=== PATIENT | male | born 1960 ===

== ENCOUNTER 2019-03-10 13:00 | Emergency (ER) | payer OTHER ==
--- NOTE | 2019-03-10 13:30 | ED ---
HPI Chest Pain - HPI Summary HPI Summary: Patient is a 58 y/o M presenting to the ED for a chief complaint of intermittent diffuse chest pain that began the morning of 03/10/19. Patient was administered 325 mg aspirin by EMS. Patient also reports palpitations, shortness of breath, and nausea. He describes the chest pain as tightness that lasted for about 2 minutes before resolving. Patient denies similar chest pain in the past. Patient denies vomiting, calf pain, calf swelling, bilateral LE pain or swelling, or diaphoresis. PMHx is significant for HTN, hepatitis C, back problems, DDD, and herniated discs, but denies blood clots. PSHx is significant for hip, leg, knee, and arm surgery. FMHx is significant for PR. Patient last had a cardiac stress test 20 years ago.He admits to smoking 2 packs of cigarettes a day. Patient also admits marijuana use, but denies alcohol use. He denies using oxygen at home. Allergies noted. Medications reviewed. - History of Current Complaint Chief Complaint: EDChestPainROMI Time Seen by Provider: 03/10/19 13:11 Hx Obtained From: Patient Onset/Duration: Atraumatic, Still Present Timing: Intermittent Initial Severity: Moderate Current Severity: Moderate Pain Intensity: 4 Pain Scale Used: 0-10 Numeric Chest Pain Location: Diffuse Chest Pain Radiates: No Character: Tightness Aggravating Factor(s): Nothing Alleviating Factor(s): Nothing Associated Signs and Symptoms: Positive: Chest Pain, Shortness of Breath, Nausea , Palpitations, Other: - Negative bilateral LE pain. Negative: Calf Pain/ Swelling, Vomiting, Edema - Bilateral LE - Allergy/Home Medications Allergies/Adverse Reactions: Allergies Allergy/AdvReac Type Severity Reaction Status Date / Time celecoxib [From Celebrex] Allergy Unknown Verified 03/10/19 13:19 Reaction Details rofecoxib [From Vioxx] Allergy Unknown Verified 03/10/19 13:19 Reaction Details Home Medications: Home Medications Calcium Carbonate CHEW TAB* [Tums*] 1,000 mg PO BID PRN 03/10/19 [History Confirmed 03/10/19] Naproxen TAB* [Naprosyn 250 mg TAB*] 500 mg PO Q8H PRN 03/10/19 [History Confirmed 03/10/19] amLODIPine TAB* [Norvasc 5 mg TAB*] 5 mg PO DAILY 03/10/19 [History Confirmed ] PMH/Surg Hx/FS Hx/Imm Hx Previously Healthy: Yes Endocrine/Hematology History: Denies: Hx Diabetes Cardiovascular History: Reports: Hx Hypertension Denies: Hx Hypercholesterolemia GI History: Reports: Other GI Disorders - Hep C Musculoskeletal History: Reports: Hx Back Problems, Other Musculoskeletal History - DDD Sensory History: Denies: Hx Legally Blind, Hx Deafness Opthamlomology History: Denies: Hx Legally Blind EENT History: Denies: Hx Deafness Neurological History: Reports: Other Neuro Impairments/Disorders - Herniated disc - Surgical History Surgical History: Yes Surgery Procedure, Year, and Place: Hip, leg, knee, and arm Infectious Disease History: No Infectious Disease History: Denies: Traveled Outside the [place] in Last 30 Days - Family History Known Family History: Positive: Other - PR - Social History Occupation: Unemployed Lives: Alone Alcohol Use: None Hx Substance Use: Yes Substance Use Type: Reports: Marijuana Substance Use Comment - Amount & Last Used: not while incarcerated Hx Tobacco Use: Yes Smoking Status (MU): Light Every Day Tobacco Smoker Type: Cigarettes Review of Systems Negative: Skin Diaphoresis Positive: Palpitations, Chest Pain Positive: Shortness Of Breath Positive: Nausea. Negative: Vomiting Negative: Myalgia - Bilateral LE or calf, Edema - Bilateral LE or calf All Other Systems Reviewed And Are Negative: Yes Physical Exam - Summary Physical Exam Summary: Constitutional: Well-developed, Well-nourished, Alert. (-) Distressed Skin: Warm, Dry HENT: Normocephalic; Atraumatic Eyes: Conjunctiva normal Neck: Musculoskeletal ROM normal neck. (-) JVD, (-) Stridor, (-) Tracheal deviation Cardio: Rhythm regular, rate normal, Heart sounds normal; Intact distal pulses; Radial pulses are 2+ and symmetric. (-) Murmur Pulmonary/Chest wall: Effort normal. (-) Respiratory distress, (-) Wheezes, (-) Rales Abd: Soft, (-) tenderness, (-) Distension, (-) Guarding, (-) Rebound Musculoskeletal: (-) Edema Lymph: (-) Cervical adenopathy Neuro: Alert, Oriented x3 Psych: Mood and affect Normal Triage Information Reviewed: Yes Vital Signs On Initial Exam: Initial Vitals BP 139/83 03/10/19 13:09 Vital Signs Reviewed: Yes Procedures - Sedation Patient Received Moderate/Deep Sedation with Procedure: No Diagnostics - Vital Signs Vital Signs Temp Pulse Resp BP Pulse Ox 03/10/19 13:12 8 03/10/19 13:10 97.9 F 66 12 139/83 97 03/10/19 13:09 139/83 - Laboratory Result Diagrams: 03/10/19 13:35 03/10/19 13:35 Lab Statement: Any lab studies that have been ordered have been reviewed, and results considered in the medical decision making process. - Radiology Chest X-ray Radiology Interpretation Completed By: Radiologist Summary of Radiographic Findings: Chest X-ray IMPRESSION: NO ACTIVE CARDIOPULMONARY DISEASE. Reviewed by Dr. Nickerson. - EKG 13:18 Cardiac Rate: NL - 81 BPM EKG Rhythm: Sinus Rhythm ST Segment: Normal Ectopy: None Summary of EKG Findings: EKG at 13:18 shows 81 BPM with normal sinus rhythm, ventricular bigeminy, Q waves inversions in lead I, lead II, and aVF, no STEMI. Reviewed and interpreted by Dr. Nickerson. Chest Pain Course/Dx - Course Course Of Treatment: Patient is here with weeks of feeling palpitations. Patient was noted to be in ventricular bigeminy with frequent PVCs. Patient has had. Her chest pain as well but it is nonexertional in nature and only lasts a couple of minutes. Patient has a well score of 0 for PE. Patient had serial troponins which were negative. Patient has a heart score of 3 so she was discharged with cardiology follow-up. - Diagnoses Provider Diagnoses: Ventricular bigeminy, Chest pain Discharge ED - Sign-Out/Discharge Documenting (check all that apply): Patient Departure - Discharge - Discharge Plan Condition: Stable Disposition: HOME Patient Education Materials: Chest Pain (ED) Referrals: Kary Plaza [Primary Care Provider] - Kj Landin MD [Medical Doctor] - Additional Instructions: FOLLOW UP WITH DR. LANDIN FOR A HOLSTER MONITOR AND POSSIBLE STRESS TEST. RETURN TO THE EMERGENCY DEPARTMENT FOR SEVERE CHEST PAIN, TROUBLE BREATHING, OR ANY OTHER CONCERNING SYMPTOMS. - Billing Disposition and Condition Condition: STABLE Disposition: Home - Attestation Statements Document Initiated by Scribe: Yes Documenting Scribe: Barbara Webb Provider For Whom Scribe is Documenting (Include Credential): Jan Nickerson MD Scribe Attestation: I, Barbara Webb, scribed for Jan Nickerson MD on 03/10/19 at 1824. Scribe Documentation Reviewed: Yes Provider Attestation: The documentation as recorded by the scribe, Barbara Webb accurately reflects the service I personally performed and the decisions made by me, Jan Nickerson MD Status of Scribe Document: Viewed
[2019-03-10 13:53] LABS: ABS Basophils 0.1 10^3/ul (0-0.2); ABS Eosinophils 0.3 10^3/ul (0-0.6); ABS Lymphocytes 1.6 10^3/ul (1.0-4.8); ABS Monocytes 0.7 10^3/ul (0-0.8); ABS Neutrophils 2.8 10^3/ul (1.5-7.7); Eosinophil % 6.2 %; Hematocrit 46 % (42-52); Hemoglobin 16.1 g/dL (14.0-18.0); Lymphocyte % 29.6 %; Mean Corpuscular HGB Conc 35 g/dL (31-36); Mean Corpuscular Hemoglobin 35 pg (27-31); Mean Corpuscular Volume 99 fL (80-94); Mean Platelet Volume 9.5 fL (7.4-10.4); Nucleated Red Blood Cells % 0.1; Platelet Count 125 10^3/uL (150-450); Red Blood Count 4.64 10^6 /uL (4.18-5.48); Red Cell Distribution Width 12 % (10-15); White Blood Count 5.5 10^3/uL (3.5-10.8)
[2019-03-10 14:05] LABS: INR 1.23 (0.82-1.09)
[2019-03-10 14:11] LABS: Albumin 3.7 g/dL (3.2-5.2); Albumin/Globulin Ratio 0.9 (1-3); BUN/Creatinine Ratio 19.2 (8-20); EGFR African American 122.9 (>60); EGFR Non-African American 101.5 (>60); Potassium 4.2 mmol/L (3.5-5.0); Total Bilirubin 0.7 mg/dL (0.2-1.0); Total Protein 7.7 g/dL (6.4-8.9)
[2019-03-10 14:12] LABS: Troponin I 0.01 ng/mL (<0.03)
[2019-03-10 18:20] VITALS: BP 146/73
== END 2019-03-10 18:00 | disposition home or self-care (01) ==
LOC: ED 13:00
DX: R00.8 Other abnormalities of heart beat (principal); R07.89 Other chest pain; R06.02 Shortness of breath; R11.0 Nausea; I10 Essential (primary) hypertension; Z82.49 Family history of ischemic heart disease and other diseases of the circulatory system; Z88.8 Allergy status to other drugs, medicaments and biological substances; F17.210 Nicotine dependence, cigarettes, uncomplicated
CPT/HCPCS: 36415; 71045; 80053; 84484; 85025; 85610; 93005; 99283